=== PATIENT | female | born 2000 | race Caucasian/White ===

== ENCOUNTER 2024-05-16 20:25 | Emergency (ER) | payer OTHER, SELFPAY ==
[2024-05-16 20:33] VITALS: BP 131/90; PULSE 142; TEMP 38; O2SAT 93; BMI 28.3
--- NOTE | 2024-05-16 20:41 | XR_ITS ---
The [address] [address] Patient Name: MICH ORTEGA MRN: [id number] date: 2000 Sex: F Assigned Patient Location: ED.MAIN Current Patient Location: Accession/Order Number: [id number] Exam Date: 05/16/2024 21:05 Report Date: 05/16/2024 23:15 At the request of: NIA BRANCH Procedure: XR hand LT min 3V XR hand LT min 3V: HISTORY: dog bite dog bite COMPARISON: None available. TECHNIQUE: 3 left hand views are submitted. FINDINGS: BONES/JOINT SPACES: There is an acute fracture involving the distal tuft of the fourth distal phalanx. No additional acute fractures are present elsewhere. The joint spaces are well-maintained. SOFT TISSUES: There is significant soft tissue swelling with air in the soft tissues of the left hand along the metacarpal bones and between the metacarpophalangeal joints. No retained radiopaque foreign bodies are present. XR/XR hand LT min 3V IMPRESSION: 1. Acute fracture involving the left fourth distal phalanx. 2. Significant soft tissue swelling and air as discussed above corresponding to reported clinical history of dog bite. Electronically authenticated by: BELLO SOSA Date: 05/16/2024 23:15
[2024-05-16] MEDS: KETOROLAC TROMETHAMINE 30 MG/ML VIAL IVP (21:15)
[2024-05-16] MEDS: ADACEL DIPH,PERTUSS(ACELL),TET VAC/PF 0.5 ML ADULT SYRINGE IM (21:16)
[2024-05-16] MEDS: ONDANSETRON PF 4 MG/2 ML VIAL IV (21:16)
[2024-05-16] MEDS: AMPICILLIN SODIUM/SULBACTAM NA 3 GM in 0.9 % SODIUM CHLORIDE 100 ML IV (21:17)
[2024-05-16] MEDS: LIDOCAINE HCL 2% PF 40 MG/2 ML VIAL 10 ML INJ (21:20)
[2024-05-16] MEDS: LORAZEPAM 2 MG/ML VIAL 0.5 MG IV (21:45)
--- NOTE | 2024-05-16 21:53 | PC.NURSE ---
Long scratch to left ring finger from tooth. Large gapping wound to outer palm of hand with adipose tissue noted
--- NOTE | 2024-05-16 22:09 | ED.ANIMALBI1 ---
HPI - Animal Bite General Chief Complaint: Animal Bite Stated Complaint: dog bite Time Seen by Provider: 05/16/24 20:41 Source: patient Mode of arrival: walk-in Limitations: no limitations History of Present Illness HPI narrative: 23-year-old female presents here with a chief complaint of a dog bite to the left hand. Dogs were fighting over a ball she tried to separate them. She has a complex laceration to the left palm measuring 4 x 2 cm length with. Appears superficial in nature on initial exam patient also has a deep superficial scratch around the medial and lateral aspect of the ring finger with complete avulsion of her fingernail. She is not up-to-date on her tetanus. Patient presented to the emergency room immediately after injury occurred. Both dogs are vaccinated. Related Data Home Medications ?Medication ?Instructions ?Recorded ?Confirmed control 05/16/24 Previous Rx's ?Medication ?Instructions ?Recorded amoxicillin 875 mg-potassium 1 tab PO BID #20 tabs 05/16/24 clavulanate 125 mg tablet fluconazole 100 mg tablet 100 mg PO QWEEK #2 tabs 05/16/24 (Diflucan) Allergies Allergy/AdvReac Type Severity Reaction Status Date / Time azithromycin [From Zithromax] AdvReac Nausea Verified 05/16/24 20:37 Review of Systems ROS Narrative All Systems are negative except as noted/marked.All systems reviewed and otherwise negative Exam Narrative Exam Narrative: Nurses note and vital signs reviewed and patient is not hypoxic. General: The patient appears upset and crying due to incident. Skin: Warm, dry, no pallor noted. There is no rash noted. Head: Normocephalic, atraumatic Eye: Normal conjunctiva, no drainage, EOMI. PERRL Ears, Nose, Mouth, and Throat: oral mucosa is moist. Nares patent. Mouth without vesicles. Ear canals patent. Tm's without Erythema Musculoskeletal: complex laceration to the left palm measuring 4cm in length by 1cm width with subcutaneous fat exposed. bleeding controlled, no foreign bdy, no tendon damage or exposure. pt able to move all fingers well, full flexion and extension, left ring finger has superficial laceration to the medial and lateral aspect of finger running distally with complete nail avulsion. 2 superficial puncture wounds the dorsal aspect of hand. The patient has no evidence of calf tenderness, no pitting edema, symmetrical pulses noted bilaterally Neurological: A&O x4, normal speech Psychiatric: Cooperative Constitutional Vital Signs, click to edit/add: Last Vital Signs Temp 100.4 F 05/16/24 20:33 Pulse 89 05/16/24 22:30 Resp 16 05/16/24 22:30 BP 98/64 05/16/24 22:30 Pulse Ox 99 05/16/24 22:30 O2 Del Method Room Air 05/16/24 22:30 Course Vital Signs Vital signs: Vital Signs Temperature 100.4 F 05/16/24 20:33 Pulse Rate 142 H 05/16/24 20:33 Respiratory Rate 22 H 05/16/24 20:33 Blood Pressure 131/90 05/16/24 20:33 Pulse Oximetry 93 L 05/16/24 20:33 Oxygen Delivery Method Room Air 05/16/24 20:33 Temperature 100.4 F 05/16/24 20:33 Pulse Rate 89 05/16/24 22:30 Respiratory Rate 16 05/16/24 22:30 Blood Pressure 98/64 05/16/24 22:30 Pulse Oximetry 99 05/16/24 22:30 Oxygen Delivery Method Room Air 05/16/24 22:30 MDM - Animal Bite MDM Narrative Medical decision making narrative: 23-year-old female presents here with a chief complaint of a dog bite to the left hand. Dogs were fighting over a ball she tried to separate them. She has a complex laceration to the left palm measuring 4 x 2 cm length with. Appears superficial in nature on initial exam patient also has a deep superficial scratch around the medial and lateral aspect of the ring finger with complete avulsion of her fingernail. She is not up-to-date on her tetanus. Patient presented to the emergency room immediately after injury occurred. Both dogs are vaccinated. upon arrival to er the pt was placed in room and IV was established. pt left hand was soaked and irrigated by myself and nursing staff, pt has significant laceration to the palm of the left hand measuring 4 x 1.5 cm in length and width. Hand was investigated by myself no acute foreign body x-rays were performed showed no acute foreign body. Hand was anesthetized with 2% lidocaine solution x 5 cc as well as 1% lidocaine solution x 3 cc totally. The wound was then loosely approximated using 4-0 Ethilon suture x 14 sutures. Simple sutures were used. Wound was then dressed with nonadhesive dressing. Patient also had superficial lacerations to the medial and lateral aspect of the left ring finger which did not require sutures. That was also dressed by nursing staff. Patient does have an open fracture noted to the distal tip of the left ring finger where she has a tuft fracture and nail avulsion. Patient's hand was dressed and tube gauze dressing was applied. Patient was given IV antibiotics here. She was medicated with Toradol morphine and discharged home with prescription for Percocet and antibiotics. She will follow-up with orthopedics on Saturday at 10:15 in the morning. Reasons to return to the emergency room were discussed. Patient tolerated procedures well. She verbalized understanding discharged home with laceration dog bite and phalanx fracture instructions. Patient encouraged to take all of the antibiotics till they are completely gone. Differential Diagnosis Differential diagnosis: Likely dog bite Medical Records Attestation: I reviewed the patient's medical records. Imaging Data hand: Attestation: I have reviewed the pertinent imaging results. Radiologist's impression: ITS Impressions Hand X-Ray 05/16/24 20:41 IMPRESSION: 1. Acute fracture involving the left fourth distal phalanx. 2. Significant soft tissue swelling and air as discussed above corresponding to reported clinical history of dog bite. Electronically authenticated by: BELLO SOSA Date: 05/16/2024 23:15 Discharge Plan Discharge Stand Alone Forms: Portal Instructions Chief Complaint: Animal Bite Clinical Impression: Dog bite, Laceration, Avulsion of nail bed Patient Disposition: Home, Self-Care Time of Disposition Decision: 10:30 Condition: Good Mode of Transportation: Private Vehicle Prescriptions / Home Meds: New amoxicillin-pot clavulanate 875-125 mg tablet 1 tab PO BID Qty: 20 0RF fluconazole [Diflucan] 100 mg tablet 100 mg PO QWEEK Qty: 2 0RF No Action control Print Language: Greenlandic Instructions: Animal Bite (ED), Care For Your Stitches (DC), Laceration (ED), Nail Avulsion (ED) Referrals: Michael Rdz MD [Physician] - 1 week Physician,Non-Staff, [Physician] - 1 week Roe Ko MD [Physician] - 05/18/24 10:10 am Discharge Date/Time: 05/16/24 22:35
[2024-05-16] MEDS: OXYCODONE HCL/ACETAMINOPHEN 5MG/325MG 1 TAB PO (22:27)
[2024-05-16] MEDS: LIDOCAINE HCL 1% PF 50 MG/5 ML VIAL INJ (22:28)
[2024-05-16] MEDS: MORPHINE SULFATE 2 MG/ML SYRINGE IV (22:28)
[2024-05-16 22:30] VITALS: BP 98/64; PULSE 89; O2SAT 99
== END 2024-05-16 22:35 | disposition home or self-care (01) ==
PROVIDERS: Emergency Provider Internal Medicine; PCP Family Medicine
DX: S61.452A Open bite of left hand, initial encounter (principal); S62.635B Displaced fracture of distal phalanx of left ring finger, initial encounter for open fracture; S60.572A Other superficial bite of hand of left hand, initial encounter; W54.0XXA Bitten by dog, initial encounter; Z23 Encounter for immunization
CPT/HCPCS: 12002; 73130; 90471; 90715; 96365; 96375; 99284; J0295; J1885; J2060; J2270; J2405

== ENCOUNTER 2024-07-15 10:12 | Outpatient (OUT) | payer OTHER, SELFPAY ==
--- OUTSIDE RECORDS SUMMARY | 2024-07-15 10:29 | XMS_ITS | CCD ---
Author Organization [facility] Inform ion Partnership [facility] Care Team Providers Care Computer Forensic Specialist Name Role Phone VERA FOX V Attending Unavailable VERA FOX V Admitting Unavailable VERA FOX V Attending Unavailable VERA FOX V Admitting Unavailable Vic Serrano Primary Care Physician MD Vic Serrano Primary Care Provider [phone] MD Lui Velazquez Jr Emergency Provider Lui Velazquez Jr Admitting Unavailable Lui Velazquez Jr Attending Unavailable Vic Serrano Primary Care Unavailable DO Rajesh Hunt Admitting Unavailable DO Rajesh Hunt Attending Unavailable DO Rajesh Hunt Attending Unavailable Darwin Millan Attending Unavailable Darwin Millan Admitting Unavailable JOHN HALEY Attending Unavailable JOHN HALEY Attending Unavailable Vic Serrano MD Primary Care Provider [phone] VIC SERRANO Primary Care Unavailable TOBI BOOGIE Attending Unavailable Allergies Allergy Classification Reported Allergen(s) Allergy Type Date of Onset Reaction(s) Facility (2 sources) Azithromycin; Translations: [Zithromax] Drug Allergy [facility] Repository (4 sources) Azithromycin; Translations: [azithromycin] Drug Allergy 03-30-2019 [facility] (1 source) Azithromycin Drug Allergy 12-06-2022 [facility] Repository Medications Current Medications Medication Drug Class(es) Dates Sig (Normalized) Sig (Original) Aspir 81 (1 source) Start: 06-26-2015 take 81 mg by mouth once daily Aspir 81 81 mg, Oral, Daily, Refills(s) 0, Other (see comment) Start Date: 06/26/15 Status: Ordered etonogestrel 68 mg drug implant (1 source) Progestin End: 11-13-2023 etonogestrel-elutin g 68 mg contraceptive implant Inject 68 mg under the skin 0 11/13/2023 Discontinued (Therapy completed) FLUoxetine 20 mg oral capsule (1 source) Serotonin Reuptake Inhibitor Start: 11-13-2019 take 1 capsule by mouth once daily FLUoxetine 20 mg Cap 20 mg = 1 cap(s), Oral, Daily, Refills(s) 0, Depression Start Date: 11/13/19 Status: Ordered norethindrone 0.35 mg oral tablet (1 source) Start: 10-21-2023 End: 10-20-2024 take 1 tablet by mouth in the morning norethindrone (Incassia) 0.35 MG tablet Indications: Encounter for surveillance of contraceptive pills Take 1 tablet (0.35 mg) by mouth in the morning. 84 tablet 3 10/21/2023 10/20/2024 Active topiramate 50 mg oral tablet (1 source) Start: 11-13-2019 take 1 tablet by mouth once daily topiramate 50 mg Tab 50 mg = 1 tab(s), Oral, Daily, Refills(s) 0, Migraine headache Start Date: 11/13/19 Status: Ordered Problems Problem Classification Problem Date Documented Date Episodic/Chronic Anxiety disorders (1 source) Anxiety 11-13-2019 Chronic Cardiac and circulatory congenital anomalies (1 source) Patent foramen ovale 11-13-2019 Chronic Contraceptive and procreative management (1 source) Subcutaneous contraceptive implant present; Translations: [Encounter for surveillance of implantable subdermal contraceptive] 11-12-2023 Episodic Headache; including migraine (2 sources) Migraine; Translations: [Complicated migraine] 11-20-2019 Chronic Headache; including migraine (1 source) Headache; including migraine; Translations: [Headache, unspecified] Onset: 12-06-2022 Nausea and vomiting (3 sources) Nausea with vomiting, unspecified; Translations: [Nausea] Onset: 07-06-2024 Episodic Other and unspecified benign neoplasm (1 source) 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 Other hematologic conditions (1 source) H/O: blood disorder 11-13-2019 Episodic Unclassified (1 source) vomiting, nausea Onset: 07-06-2024 Results Test Name Value Interpretation Reference Range Facility BASIC METABOLIC PANLon 07-06 Anion gap [Moles/Vol] 7 mmol/L Normal 5-15 [facility] Comment on above: Performed By: #### B MANSOOR OCAMPO, 05834-2 #### [facility] ([id number]) [address] [place] [address] 51235 Calcium [Mass/Vol] 9.0 mg/dL Normal 8.5-10.5 [facility] Comment on above: Performed By: #### B MANSOOR OCAMPO, 13205-4 #### [facility] ([id number]) [address] [place] [address] 30764 Chloride [Moles/Vol] 106 mmol/L Normal 98-109 [facility] Comment on above: Performed By: #### [place], [address]-7 #### [facility] ([id number]) [address] [place] [address] 69274 CO2 [Moles/Vol] 26 mmol/L Normal 22-32 [facility] Comment on above: Performed By: #### B MANSOOR OCAMPO, 81143-7 #### [facility] ([id number]) [address] [place] [address] 34938 Creatinine [Mass/Vol] 0.63 mg/dL Normal 0.40-1.00 [facility] Comment on above: Result Comment: METH OD TRACEABLE TO IDMS STANDARD Performed By: #### B MANSOOR OCAMPO, 21649-3 #### [facility] ([id number]) [address] [place] [address] 73453 eGFR (CKD-EPI) NON-RACE DEPENDENT >90 Normal >59 [facility] Comment on above: Result Comment: Reported eGFR is based on the CKD-EPI 2020 equation that does not use a race coefficient. Performed By: #### B MANSOOR OCAMPO, 43819-3 #### [facility] ([id number]) [address] [place] [address] 21901 Glucose [Mass/Vol] 111 mg/dL High 65-99 [facility] Comment on above: Performed By: #### B TERRENCE, CBCA, 71381-9 #### [facility] ([id number]) [address] [place] [address] 58561 Potassium [Moles/Vol] 4.2 mmol/L Normal 3.5-5.0 [facility] Comment on above: Performed By: #### B MP, CBCA, 23541-3 #### [facility] ([id number]) [address] [place] [address] 18118 Sodium [Moles/Vol] 139 mmol/L Normal 134-146 [facility] Comment on above: Performed By: #### B TERRENCE, CBCA, 85452-5 #### [facility] ([id number]) [address] [place] [address] 89750 Urea nitrogen [Mass/Vol] 10 mg/dL Normal 5-23 [facility] Comment on above: Performed By: #### B TERRENCE, CBCA, 87428-8 #### [facility] ([id number]) [address] [place] [address] 07977 CBC AND AUTO DIFFon 07-06-20 24 ABSOLUTE BASOPHIL 0.1 X10E9/L Normal 0.0-0.2 [facility] Comment on above: Performed By: #### B MP, CBCA, 65962-2 #### [facility] ([id number]) [address] [place] [address] 03612 ABSOLUTE NEUTROPHIL 6.2 X10E9/L Normal 1.5-6.6 [facility] Comment on above: Performed By: #### B MP, CBCA, 27578-0 #### [facility] ([id number]) [address] [place] [address] 86132 Basophils/100 WBC (Bld) 0.8 % Normal [facility] Comment on above: Performed By: #### B TERRENCE, CBCA, 00568-7 #### [facility] ([id number]) [address] [place] [address] 79678 Eosinophils (Bld) [#/Vol] 0.1 10*3/uL Normal 0.0-0.4 [facility] Comment on above: Performed By: #### B TERRENCE, CBCA, 83288-4 #### [facility] ([id number]) [address] [place] [address] 90317 Eosinophils/100 WBC (Bld) 0.7 % Normal [facility] Comment on above: Performed By: #### B TERRENCE, CBCA, 33552-8 #### [facility] ([id number]) [address] [place] [address] 38673 Erythrocyte distribution width (RBC) [Ratio] 16.5 % High 11.5-15.0 [facility] Comment on above: Performed By: #### B TERRENCE, CBCA, 75987-1 #### [facility] ([id number]) [address] [place] [address] 18148 Hematocrit (Bld) [Volume fraction] 42.7 % Normal 35-47 [facility] Comment on above: Performed By: #### B TERRENCE, CBCA, 70207-7 #### [facility] ([id number]) [address] [place] [address] 34390 Hemoglobin (Bld) [Mass/Vol] 14.3 g/dL Normal 11.7-15.5 [facility] Comment on above: Performed By: #### B TERRENCE, CBCA, 91106-4 #### [facility] ([id number]) [address] [place] [address] 09250 Lymphocytes (Bld) [#/Vol] 0.9 10*3/uL Low 1.0-3.5 [facility] Comment on above: Performed By: #### B TERRENCE, CBCA, 81096-5 #### [facility] ([id number]) [address] [place] [address] 20243 Lymphocytes/100 WBC (Bld) 12.0 % Normal [facility] Comment on above: Performed By: #### B TERRENCE, CBCA, 06789-3 #### [facility] ([id number]) [address] [place] [address] 43369 MCH (RBC) [Entitic mass] 29.3 pg Normal 27-34 [facility] Comment on above: Performed By: #### B TERRENCE, CBCA, 42200-4 #### [facility] ([id number]) [address] [place] [address] 14137 MCHC (RBC) [Mass/Vol] 33.5 g/dL Normal 32-36 [facility] Comment on above: Performed By: #### B TERRENCE, CBCA, 98405-5 #### [facility] ([id number]) [address] [place] [address] 70312 MCV (RBC) [Entitic vol] 88 fL Normal 80-100 [facility] Comment on above: Performed By: #### Allegra OCAMPO, CBCA, 59371-5 #### [facility] ([id number]) [address] [place] [address] 44857 Monocytes (Bld) [#/Vol] 0.4 10*3/uL Normal 0-0.9 [facility] Comment on above: Performed By: #### B TERRENCE, CBCA, 39292-2 #### [facility] ([id number]) [address] [place] [address] 92800 Monocytes/100 WBC (Bld) 5.9 % Normal [facility] Comment on above: Performed By: #### Allegra OCAMPO, CBCA, 62439-5 #### [facility] ([id number]) [address] [place] [address] 80253 Neutrophils/100 WBC (Bld) 80.6 % Normal [facility] Comment on above: Performed By: #### B MP, CBCA, 14474-0 #### [facility] ([id number]) [address] [place] [address] 03990 Platelet mean volume (Bld) [Entitic vol] 9.3 fL Normal 7-12 [facility] Comment on above: Performed By: #### B MP, CBCA, 73281-7 #### [facility] ([id number]) [address] [place] [address] 79240 Platelets (Bld) [#/Vol] 221 10*3/uL Normal 150-450 [facility] Comment on above: Performed By: #### B MP, CBCA, 99848-3 #### [facility] ([id number]) [address] [place] [address] 49228 RBC COUNT 4.89 X10E12/L Normal 3.80-5.20 [facility] Comment on above: Performed By: #### B MP, CBCA, 39715-3 #### [facility] ([id number]) [address] [place] [address] 05967 WBC (Bld) [#/Vol] 7.7 10*3/uL Normal 4.0-11.0 [facility] Comment on above: Performed By: #### B MP, CBCA, 10733-7 #### [facility] ([id number]) [address] [place] [address] 23857 HCG ( test) Kieran Sun (S)on 07-06-2024 SERUM Negative Normal NEG [facility] Comment on above: Performed By: #### B MP, CBCA, 22802-5 #### [facility] ([id number]) [address] [place] [address] [place] [address] URN MACROSCOPIC NURon 2023 BILIRUBIN NAN Negative Normal NEG [facility] Comment on above: Performed By: #### N UM #### [facility] ([id number]) [address] [place] [address] [place] [address] BLOOD/HGB ANN Negative Normal NEG [facility] Comment on above: Performed By: #### N UM #### [facility] ([id number]) [address] [place] [address] [place] [address] GLUCOSE ANN Negative Normal NEG [facility] Comment on above: Performed By: #### N UM #### [facility] ([id number]) [address] [place] [address] [place] [address] KETONES ANN Negative Normal NEG [facility] Comment on above: Performed By: #### N UM #### [facility] ([id number]) [address] [place] [address] [place] [address] LEUKOCYTE ESTERASE ANN Negative Normal NEG [facility] Comment on above: Performed By: #### N UM #### [facility] ([id number]) [address] [place] [address] [place] [address] NITRITE ANN Negative Normal NEG [facility] Comment on above: Performed By: #### N UM #### [facility] ([id number]) [address] [place] [address] [place] [address] PH ANN 6.0 Normal 5.0-8.5 [facility] Comment on above: Performed By: #### N UM #### [facility] ([id number]) [address] [place] [address] [place] [address] PROTEIN ANN Negative Normal NEG [facility] Comment on above: Performed By: #### N UM #### [facility] ([id number]) [address] [place] [address] SPECIFIC GRAVITY ANN 1.025 Normal 1.003-1 .03 5 [facility] Comment on above: Performed By: #### N UM #### [facility] ([id number]) [address] [place] [address] UROBILINOGEN ANN 0.2 eu/dL Normal <1.1 [facility] Comment on above: Performed By: #### N UM #### [facility] ([id number]) [address] [place] [address] 27644 Insertion/Removal of Contrac eptive Capsuleon 11-13-2023 John Haley DO 11/13/2023 11:51 AM Insertion/Removal of Contraceptive Capsule Date/Time: 11/13/2023 11:47 AM Performed by: John Haley DO Authorized by: John Haley DO Consent: Consent obtained: Verbal Consent given by: Patient Procedural risks discussed: Bleeding and infection Patient questions answered: yes Patient agrees, verbalizes understanding, and wants to proceed: yes Indication: Indication: Presence of non-biodegradable drug delivery implant Pre-procedure: Pre-procedure timeout performed: yes Prepped with: povidone-iodine Local anesthetic: Lidocaine with epinephrine The site was cleaned and prepped in a sterile fashion: yes Procedure: Procedure: Removal Small stab incision was made in arm: yes Left/right: Left Site was closed with steri-strips and pressure bandage applied: yes Comments: Implant removed intact [facility] Coding Summary.on 01-21-2023 Coding Summary. CD:[id number] Ww+PGh lYWQ+SW2SNLPmR08vjQVruV9dK 0NMTElOSywgQVBQTElOSyIgbmF iVE2jsXBfEOUi IC8+RI8sZAAlAmgumYNzd5R0vQ T9Q35bez8jEGdfcAL3FXSjLdBd cpwhw3cqlCt4KWevDxuzMsSs XIMdaT81RWN2xE19Dh70ySFnuS Phy4wvbYe8WsMqNYKjZXV5pSmw TMeat6RiOMSuD54icCSxd3O5 WAAqmKxmbNDdTlOgyOL1gE4bVT oiwavpv5zkezrkQll7nn82pFBs w5A8mWW1G0SxvfB0ZUOtnUOf CosehKEIgR9ugfjar6mojdfpPa SwMXDeQNt2NMu1RSNsoAtvFpMs DZ17JYE3ABPesxHxF4RfYNGl rYweAbJ6x3D2Zi4VM3KUWljgR0 VNTUFSWTwvdGQ+YY08zs45J3Wz ZvrmCmi1GBQtNTR2yJY2oY1z VVPlUJkce4A6xTT6P5DxidAflu 6lb5kaIFDlZNhhZ80xoRNvw3A1 INMhbUT9LXVvyIncZpHcvM59 Oyc+ECWwgVdkm6IvPgiiz7mhh2 pjgYw1ZhkpKOQilwGhpThwBMH6 d9SnQr1vKEZhtWW1kBG0aX0s QiExAnB5CCaoD145PvWqyNCiNo umU89gB7LjxLV+GRSePfl8NQTz gVjlEJ4mQ5SkMXBlssredPNv nOsoJT4dWYTkwtmiJQFbeZ3uUU XyN4a4OeIuXtZ9YOhhQ8ZsGSTj dqyrLl02aH8pNjQhLrI0PCuk Q2ClniY7OUXnvWLjURmuUOU4M5 3wj6L6UCNiOTLbXSE0eNG8mA4c bGlnbjogbGVmdDsgdmVydGlj BTayEVvaQ999GXQiwZjrAfCgTX luZyBEYXRlOiAgMDQvMTcvMjAy MzwvdGQ+FNUhBWY9kAcoYLRv pVYwZFjoQa9ooRtnsGgcPA0oSJ ZznhjoAGGunS7sJHHqsZOvdWec OI4rHREnjthdh108LvRmMUT1 WNVfvQPxJ0AciQ0oGyQfVUHnNW VzC5YsnUZtTYjrN496OQpuNkY9 YLQkajRyO4ApEDOlvLnnEoT3 v1N7Cw6Ik0NlyyqfF9PeuKWhEy CkXsoiPDa2S2JcKxttjMT+PC90 IGTyJC84QMf4YJZ0oKztCQmp AAWzK5ZjpC5gAlRhLXGoNAExOf c+PHRhYmxlIHdpZHRoPScxMDAl QfVdeSknQT1iMe9lZKRvFXZa xRbhnSWzKjDlu8blXCGpPNugWR 2tkPtcC6TdeMY9UKEiz7c7Pj01 F15tC4UpnYG+OIDhqVK3nJV4 cD0tDwBkUuM4EZepR982NzTqvU HcMzplx8zgl9eisNt1JgH5OZCb stNcoLmiCUC6w9IhZu39T70o IHdpZHRoPSIxNSUiIHZhbGlnbj 8juR6qYz3+RTUynTD2sFB0jH1v VaNrAsR0XUmkU593OtVnsHUn Qocrl4mjr1lgbNm4CvKsMYLopl DrhRywBBN8c6RhCg22V6NgsLib u4DqWgy3xf77qNNnu2K9cAM1 W4KkJVFjcdktuMTjxDysFW5yUB QrovovVCGbbO7sCSDbW3m0AsDp FyZ5LDxvB5JymcK9QZRadFVd XXZvuCPJpU8rjcxwi8leasdeNz NtNJEaCBh3MGr5PJAcxCwyFxTt ILB3OuN2XHB7iYPnyA8ftJru otpzlH0fYab+RLS1rQLqqLCGVD 1lOjwvdGQ+UXHuATH7cNfzVBtz NSTahU0qGCYxU3n3ReOkIjW3 APzpG4WdmnP5WBCdjVCzUXRzyE TRzE3ldutje1zrmzsvXpMwNBGr OVl1RXq2XWDxiCavEdLfDLR1 CmL7JHW8lWUrfK5giDofwnozuX 9wOyc+JcfrdUygRPB2WTv8D1Ey Wrv1PUEzeAxqPG4qwYGyROut Kw1boMiviTzqZR0fBNIiwltvg7 86OlUvq6jtFSQfdDXnZGpbKKC6 F13dp4W6GCNlYOWvHRX9wYV1 nL8lgCmrhxofxAQkzRfodaUpmD hoYMybKLpgD185KBIeaGfnWlQt NMg4A3KoQdo2GWGidNzrRS1j bHObMNbwKn2gzIasrTliBW3bXW Rizhoez560JrWmt9baPYMjmHXj OTepMCI2T73pb3A3JHVrEIMq LDQ1mQQ2zX3ngIgiftmykCAgrC gcggIewPswMBlhJMnrA870CEXb dEauQaCytAv9N0NuUwx9IFTc aNmxYF5wuHZaCZluFk8wxTqakX gbSV4cUCBvfercp734ZqWbj9wk MTTzmSJrSRbkDPX1Y98be8B0 VCDnRSNvJIL8wQC8eG1imExwqx ogbGVmdDsgdmVydGljYWwtYWxp E796NPSvqGqfUgYueSpyumPg HYgeKNc8X2VnVgkpaVW+PC90YW JkWK39sJIpaEVwc8tstPv1BvFu VZYwALL3jEeiVIpov7CuEJSc T90xnKEnj1M9JRCcxHlnrWSzGe CbrEH9yQ5jPInrrbwmu8ydxudd Lcnao3hpre02hL08J51hMWxo HSPjOJWsBHTaXZNliEteuz8zhI 9wIi8+NVOugTD1iYL6xL6kPRSu LvD7UHfbF656XpPjwQRnIqwt n1xvg4wkwPa7SiF2CMJycjOjaZ oiKSZ5x6VvAc59D72nQLqbJKUb HCGjRTYwFBCsjUyxrc0guW5c Ii8+EPCkiDE9rEM3xF3pSxVwZc J4SCynA814QxZyhEWhOusdJ81s U8LerJK+VHBaQbt1BNRziYew RK6mfFKrXOheLc5aPUT7QrCyJv WrYMgqP0DoDYNdwqiachnshRU3 SKTcWJHubB45Cq7ejVofXYJw bJMBoS1hbmxvd2nssaphJiGqHW YwYFo0VWq0DDZvdPidFpVnHKE8 OyP9ZJV6hGFbgB1ebIpqzplx zM3dS0XeMSUgffawXc43tG8wNt ZkImE9QIomUny+QxHEN76FLgik GQNDZ0kGLLG3G1MsBfb2XQCs tEdsNQ2ktRDmREeyXk2qpNlkwZ mlDK9sRAGckdqfGJRgwM4wCGWr oIKxwDouXK9aLXSzscgsn251 CsOgUJG4ONCzpAHuT1CgvM1dPz QoVUQhCTXpI8QnhJOuSUilP101 GFioQvX0MAFqgkCsK8SsKRGs eAxpWvE1m6J7Ew9sGX3dNC0gQU d4GZ81TY98iPZjt5N7qST5S3Dv XYJpdmzxtjuloLM1SCPsDFYd wF14aKGiUUtiNd9xt4E6t743VX XgBPOssV70Lw0ylDsjALIycRAF hM6zkuiyf8iqhukkHbFoRDYb FUf5MBs6ETRmtKndRbGvDEW1Zo L4VSH2pTBslO5vsXzqnocfhF8g Oyc+TwAiARBhhxC2Y5RzRre7 YQTllZksOL1ftHByMJxmVf5kpZ rbxWflNL4lJCJmqlluGBVnoO5h JCRifGOcqOhjSU9vUKMgkhpe u917CpZgIQG6KEBemBAfD6MkyF 3tJpEgZUPqTIQcX7XlnNZnVYuq T237PObbSwF4TAVgerTxK7To SJQsfMqhCkO0y4L7Nx4ECG3odZ P9S0IhJuh2UUXocYabWM4oiESy DFzoMp0fcNzotGicXH4lUIBw odavJFIfrJ0aOWBjsKHmsRodSL 9iJQUhtvtwh160FuRhDVI5KRFm nOVjK6NpnO2sGxAuSVKmNUXh I9VgdLVgQUfsA967QFxcHmH5NO EmjqKjZ6VnPXSoaPwfRiJ1r1L8 Cj7NJMBbVFVcxGEdQnL0J2Ng PjwvdHI+BL00XNLpSG69aGFikD Xlp0nbeDh2UoVkLHMhXCJ1xFah HAjwz7QvMTXcH89frDDmm4O5 PMHomTdqlREzZoLoxJI0bO2vGU xlesyku8myyycqCwgww2bopz63 kQ89Y43jGEveCDIhTFXmITJh HENtqHmvvv8bwA5gTa7+PGNvbC L5cNN2hH9fGjPkVaC7MQrgN088 XcGwaWKwFwkao4pjr5ryoAw4 XeWqRSKissDnqJvvRPQ8b0FoEk 17X76vUOpeYGGlFVQeHVDrVZBq tIzyxh2lzL3oVu0+PM7zt8oe em73sW66cVC+FKTpYVT4hTmnHH ocUPUgnE2gBIpkMmB6NSNrWmMj dH15lZJjWAwmZv9vfWraaPim RK5jECIculfuy449ZfTwe3ygUD XlsIEbONlsBTX8L19et9J0HZAk NISnDZR2xSA9tZ4ogZcxhbxl bGVmdDsgdmVydGljYWwtYWxpZ2 41DOLsiXhwZnXgxREhV4awtuHV GS3lMkeyyRV+UMNqNDF3uAfj YPssBUXahA0pMTKuJ0i7ZkEkOb J8MFwyN1MmbbP5BHIvkKRgXGUh rRAPrC4aihryu5ouaiubObNi ZHNiQWi9YFv6MDJhnHieMeSgCM I5LiS4EUL2mBOygJ7rqZxhlfcn yM9xDks+RklOOjwvdGQ+PHRk QWP8lRmfAIdlRWNgfT2bOBFcJ4 d3OdAgHsV4FSbjD7NtsfL0RRRe oWTvLMDgjWRZfO8blnixq1wl qzhwJzMqVAGdMIy5ECs7OYYbjW izLfHlULA5ZfC3GPA5nTJfqX7g kNwtokkenU5iDxl+TVJOOjwv dGQ+NEQtWYK7aTgvJGfoWDWteX 1wEGOsC2a9LvZvNeD0GRykZ5Kc bfS7IEGkaUBpFXDekEVJmN7b pnxni6dxjhnxWbAgHWTwVSu4BN w0WCHlwWbjDmBvUSO8LvZ1BXD7 sOFsiI2hzJoctcxpwJ2yErm+ SFS9GRX7UY40MT34U0SyHutiiN FibGU+PHRhYmxlIHdpZHRoPScx WSEdXeQrcDuvOX6uKd7sYFLc LWNvbGxh (more content not included)... [facility] Physician Orderon 01-14-2023 Physician Order [id number] Normal [facility] Activated partial thrombopla stin time (aPTT) in platelet poor plasma by coagulation aOrdered By: Lui Velazquez on 12-06-2022 aPTT Coag (PPP) [Time] 32.6 s 25.1-36.5 [facility] Albumin [Mass/volume] in Bod y fluidOrdered By: Lui Velazquez on 12-06-2022 Albumin (Body fld) [Mass/Vol] 3.9 g/dL 3.2-5.5 [facility] Alkaline phosphatase [Enzyma tic activity/volume] in Serum or PlasmaOrdered By: Lui Velazquez on 12-06-2022 ALP [Catalytic activity/Vol] 37 U/L 32-92 [facility] Aspartate aminotransferase [ Enzymatic activity/volume] in Serum or PlasmaOrdered By: Lui Velazquez on 12-06-2022 AST [Catalytic activity/Vol] 16 U/L 10-42 [facility] Basophils Auto (Bld) [#/Vol] Ordered By: Lui Velazquez on 12-06-2022 Basophils (Bld) [#/Vol] 0.1 10*3/uL 0.0-0.2 [facility] Basophils/100 WBC Auto (Bld) Ordered By: Lui Velazquez on 12-06-2022 Basophils/100 WBC (Bld) 0.9 % . [facility] Bilirubin.total [Mass/volume ] in Serum or PlasmaOrdered By: Lui Velazquez on 12-06-2022 Bilirubin [Mass/Vol] 0.4 mg/dL 0.3-1.[address] [facility] [address] head/brain wo conon 12-06 CT head/[place] [address] CT Scan Report Signed Patient: Zaida Bolton MR#: [id number] : 2000 Acct:[id number] Age/Sex: 22 / F ADM Date: 12/06/22 Loc: ER Room: Type: [facility] ER Attending Dr: Copies to: Lui Velazquez Jr, MD Ordering Provider: Lui Velazquez Jr, MD Date of Service: 12/06/22 CT/CT head/brain wo con: STUART, R hand numb, hx complic migraine and PFO CT BRAIN WITHOUT CONTRAST: CLINICAL HISTORY: Headache, right hand numbness COMPARISON: None TECHNIQUE: Contiguous axial unenhanced images were obtained through the brain. This CT exam was performed using one or more following dose reduction techniques: Automated exposure control, adjus tment of the mA and/or kV according to patient size, or use of iterative reconstruction technique. FINDINGS: There is no evidence of midline shift, intra or extra-axial fluid collection, hemorrhage or CT evidence of stroke. Posterior fossa appears unremarkable. Visualized intraorbital contents demonstrate no acute findings. Visualized paranasal sinuses are clear. The surrounding soft tissues are normal. CT/CT head/brain wo con IMPRESSION: NO ACUTE INTRACRANIAL ABNORMALITY. Impression dictated by: Carlton Coughlin Jr., D.O.12/06/2022 9:24 AM Dictation Location: [place] [address] Transcribed By: [facility] 12/06/22923 Dictated By: Carlton Coughlin Jr, DO 12/06/22922 Signed By: 12/06/22923 Normal [facility] Calcium [Mass/volume] in Ser um or PlasmaOrdered By: Lui Velazquez on 12-06-2022 Calcium [Mass/Vol] 8.8 mg/dL 8.2-10.2 [facility] Carbon dioxide, total [Moles /volume] in Serum or PlasmaOrdered By: Lui Velazquez on 12-06-2022 CO2 [Moles/Vol] 24.9 mmol/L 22.0-30.0 [facility] Chloride [Moles/volume] in S jesika or PlasmaOrdered By: Lui Velazquez on 12-06-2022 Chloride [Moles/Vol] 107 mmol/L 95-114 [facility] Coagulation Profileon 2022 aPTT Coag (Bld) [Time] 32.6 s Normal 25.1-36.5 [facility] Comment on above: Result Comment: PERF ORMED BY: [address] [address] PATHOLOGIST [employer] YAMILETH MICHAELS M.D. Performed By: #### C BC, PP, CMP #### [facility] [address] INR Coag (PPP) [Relative time] 1.1 {INR} Normal [facility] Comment on above: Result Comment: INR Therapeutic Range A) Pre- and Peroperative OAT started two weeks before surgery. NOT HIP SURGERY: 1.5 - 2.5 HIP SURGERY: 2 - 3 B) Primary and secondary prevention of venous THROMBOSIS: 2 - 3 C) Active venous thrombosis, pulmonary embolism and prevention of recurrent venous thrombosis: 2 - 3 D) Prevention of arterial thromboembolism including patients with mechanical heart valves: 3 - 4.5 Performed By: #### C BC, PP, CMP #### [address] PT Coag (PPP) [Time] 12.3 s Normal 9.0-12.9 [facility] Comment on above: Performed By: #### C BC, PP, CMP #### [address] Complete Blood Count Auto Di ffon 12-06-2022 Basophils (Bld) [#/Vol] 0.1 10*3/uL Normal 0.0-0.2 [facility] Comment on above: Result Comment: PERF ORMED BY: [place] [address] PATHOLOGIST [employer] YAMILETH MICHAELS M.D. Performed By: #### C BC, PP, CMP #### [place] [address] [place] Basophils/100 WBC (Bld) 0.9 % Normal . [facility] Comment on above: Performed By: #### C BC, PP, CMP #### [place] [address] [place] Eosinophils (Bld) [#/Vol] 0.1 10*3/uL Normal 0.0-0.45 [facility] Comment on above: Performed By: #### C BC, PP, CMP #### [address] Eosinophils/100 WBC (Bld) 2.1 % Normal . [facility] Comment on above: Performed By: #### C BC, PP, CMP #### [facility] [address] Erythrocyte distribution width (RBC) [Ratio] 12.9 % Normal 11.9-15.3 [facility] Comment on above: Performed By: #### C BC, PP, CMP #### [facility] [address] Hematocrit (Bld) [Volume fraction] 40.4 % Normal 34.0-46.4 [facility] Comment on above: Performed By: #### C BC, PP, CMP #### [facility] [address] Hemoglobin (Bld) [Mass/Vol] 13.6 g/dL Normal 11.8-15.4 [facility] Comment on above: Performed By: #### C BC, PP, CMP #### [address] Lymphocytes (Bld) [#/Vol] 1.6 10*3/uL Normal 1.00-4.8 [facility] Comment on above: Performed By: #### C BC, PP, CMP #### [place] [address] [place] Lymphocytes/100 WBC (Bld) 29.3 % Normal . [facility] Comment on above: Performed By: #### C BC, PP, CMP #### [facility] [address] [place] [address] [place] MCH (RBC) [Entitic mass] 30.8 pg Normal 24.7-34.3 [facility] Comment on above: Performed By: #### C BC, PP, CMP #### [place] [address] [place] MCV (RBC) [Entitic vol] 91.4 fL Normal 80-100 [facility] Comment on above: Performed By: #### C BC, PP, CMP #### [address] Mean Corpuscular HGB Conc 33.7 g/dL Normal 32.0-35.0 [facility] Comment on above: Performed By: #### C BC, PP, CMP #### [facility] [address] [place] [address] [place] Monocytes (Bld) [#/Vol] 0.6 10*3/uL Normal 0.0-0.8 [facility] Comment on above: Performed By: #### C BC, PP, CMP #### [facility] [address] [place] [address] [place] Monocytes/100 WBC (Bld) 15.24 % Normal 0.00-20.00 [facility] Comment on above: Performed By: #### C BC, PP, CMP #### [facility] [address] [place] [address] [place] Monocytes/100 WBC (Bld) 11.5 % Normal . [facility] Comment on above: Performed By: #### C BC, PP, CMP #### [facility] [address] [place] [address] [place] Neutrophils (Bld) [#/Vol] 3.1 10*3/uL Normal 1.8-7.7 [facility] Comment on above: Performed By: #### C BC, PP, CMP #### [facility] [address] [place] [address] [place] Neutrophils/100 WBC (Bld) 56.2 % Normal . [facility] Comment on above: Performed By: #### C BC, PP, CMP #### [facility] [address] [place] [address] [place] NRBC% 0.2 /100{WBC} Normal 0-0.5 [facility] Comment on above: Performed By: #### C BC, PP, CMP #### [facility] [address] [place] [address] [place] Platelet mean volume (Bld) [Entitic vol] 8.9 fL Normal 6.3-10.7 [facility] Comment on above: Performed By: #### C BC, PP, CMP #### [facility] [address] [place] [address] [place] Platelets (Bld) [#/Vol] 163 10*3/uL Normal 150-450 [facility] Comment on above: Performed By: #### C CORINA, PP, CMP #### [address] RBC (Bld) [#/Vol] 4.42 10*6/uL Normal 3.60-5.00 [facility] Comment on above: Performed By: #### C BC, PP, CMP #### [address] WBC (Bld) [#/Vol] 5.5 10*3/uL Normal 3.8-11.6 [facility] Comment on above: Performed By: #### C CORINA, PP, CMP #### [address] Comprehensive Metabolic Pane bebo 12-06-2022 Albumin [Mass/Vol] 3.9 g/dL Normal 3.2-5.5 [facility] Comment on above: Performed By: #### C BC, PP, CMP #### [address] Albumin/Globulin [Mass ratio] 1.6 {ratio} Normal [facility] Comment on above: Performed By: #### C CORINA, PP, CMP #### [address] ALP [Catalytic activity/Vol] 37 U/L Normal 32-92 [facility] Comment on above: Performed By: #### C CORINA, PP, CMP #### [address] ALT [Catalytic activity/Vol] 14 U/L Normal 10-60 [facility] Comment on above: Performed By: #### C CORINA, PP, CMP #### [address] Anion gap [Moles/Vol] 8.4 mmol/L Normal 6.0-15.0 [facility] Comment on above: Performed By: #### C BC, PP, CMP #### [address] AST [Catalytic activity/Vol] 16 U/L Normal 10-42 [facility] Comment on above: Performed By: #### C CORINA, PP, CMP #### [facility] [address] Bilirubin [Mass/Vol] 0.4 mg/dL Normal 0.3-1.2 [facility] Comment on above: Performed By: #### C BC, PP, CMP #### [facility] [address] Calcium [Mass/Vol] 8.8 mg/dL Normal 8.2-10.2 [facility] Comment on above: Performed By: #### C CORINA, PP, CMP #### [facility] [address] Chloride [Moles/Vol] 107 mmol/L Normal 95-114 [facility] Comment on above: Performed By: #### C CORINA, PP, CMP #### [facility] [address] CO2 [Moles/Vol] 24.9 mmol/L Normal 22.0-30.0 [facility] Comment on above: Performed By: #### C CORINA, PP, CMP #### [facility] [address] Creatinine [Mass/Vol] 0.67 mg/dL Normal 0.44-1.03 [facility] Comment on above: Performed By: #### C CORINA, PP, CMP #### [facility] [address] Creatinine Clr Calc Pharmacy 127.08 [facility] Comment on above: Result Comment: PERF ORMED BY: [place] [address] PATHOLOGIST [employer] YAMILETH MICHAELS M.D. Performed By: #### C BC, PP, CMP #### [address] Estimated GFR ( Janis > 60 Normal [facility] Comment on above: Result Comment: GFR estimated reference range: According to KDOQI guidelines, <60 ml/min/1.73m2 is sufficient to diagnose a patient with chronic kidney disease. Performed By: #### C BC, PP, CMP #### [address] Estimated GFR (Non- Am > 60 Normal [facility] Comment on above: Performed By: #### C BC, PP, CMP #### [address] Globulin (S) [Mass/Vol] 2.5 g/dL [facility] Comment on above: Performed By: #### C BC, PP, CMP #### [address] Glucose [Mass/Vol] 97 mg/dL Normal 70-100 [facility] Comment on above: Result Comment: [place] Glucose Reference Range is dependent on time and content of last meal. Glucose of more than 200 mg/dL in a nonstressed, ambulatory subject supports the diagnosis of Diabetes Mellitus. ADA recommended reference range Performed By: #### C BC, PP, CMP #### [address] Potassium [Moles/Vol] 4.3 mmol/L Normal 3.5-5.1 [facility] Comment on above: Performed By: #### C BC, PP, CMP #### [address] Protein [Mass/Vol] 6.4 g/dL Normal 6.1-7.9 [facility] Comment on above: Performed By: #### C BC, PP, CMP #### [address] Sodium [Moles/Vol] 136 mmol/L Normal 136-146 [facility] Comment on above: Performed By: #### C BC, PP, CMP #### [address] Urea nitrogen [Mass/Vol] 16 mg/dL Normal 9-23 [facility] Comment on above: Performed By: #### C BC, PP, CMP #### [facility] [address] Creatinine and Glomerular fi ltration rate.predicted panel (S/P/Bld)Ordered By: Lui Velazquez on 12-06-2022 Creatinine [Mass/Vol] 0.67 mg/dL 0.44-1.03 [facility] ECG 12 lead ECGon 12-06-2022 ECG 12 lead ECG [facility] [place] [address] [place] [address] Electrocardiograph Report Signed Patient: Zaida Bolton MR#: [id number] : 2000 Acct:[id number] Age/Sex: 22 / F ADM Date: 12/06/22 Loc: ER Room: Type: [facility] ER Attending Dr: Ordering Provider: Lui Velazquez Jr, MD Date of Service: 12/06/2211/29/434 ECG/ECG 12 lead ECG: Neuro Symptoms/Deficit Copies to: Test Reason : Blood Pressure : 115/070 mmHG Vent. Rate : 068 BPM Atrial Rate : 068 BPM P-R Int : 156 ms QRS Dur : 082 ms QT Int : 400 ms P-R-T Axes : 082 093 024 degrees QTc Int : 425 ms Normal sinus rhythm with sinus arrhythmia Rightward axis Abnormal ECG When compared with ECG of 14-NOV-2016 09:06, No significant change was found Confirmed by LUI VELAZQUEZ MD ([id number]) on 12/06/2022 5:23:23 AM Referred By: Electronically Signed By:LUI VELAZQUEZ MD Transcribed By: MUS Signed By Lui Velazquez Jr, MD 0523 Normal [facility] Eosinophils Auto (Bld) [#/Vo l]Ordered By: Lui Velazquez on 12-06-2022 Eosinophils (Bld) [#/Vol] 0.1 10*3/uL 0.0-0.45 [facility] Eosinophils/100 WBC Auto (Bl d)Ordered By: Lui Velazquez on 12-06-2022 Eosinophils/100 WBC (Bld) 2.1 % . [facility] Erythrocyte distribution wid th Auto (RBC) [Ratio]Ordered By: Lui Velazquez on 12-06-2022 Erythrocyte distribution width (RBC) [Ratio] 12.9 % 11.9-15.3 [facility] Estimated glomerular filtrat ion rate (GFR) non- AmericanOrdered By: Lui Velazquez on 12-06-2022 GFR/1.73 sq M.predicted among non-blacks MDRD (S/P/Bld) [Vol rate/Area] > 60 mL/Min [facility] Globulin Calc (S) [Mass/Vol] Ordered By: Lui Velazquez on 12-06-2022 Globulin (S) [Mass/Vol] 2.5 g/dL [facility] Glucose [Mass/volume] in Ser um or PlasmaOrdered By: Lui Velazquez on 12-06-2022 Glucose [Mass/Vol] 97 mg/dL 70-100 [facility] Comment on above: ADA recommended refe rence rangeRandom Glucose Reference Range is dependent on time and content of last meal. Glucose of more than 200 mg/dL in a nonstressed, ambulatory subject supports the diagnosis of Diabetes Mellitus. Hematocrit Auto (Bld) [Volum e fraction]Ordered By: Lui Velazquez on 12-06-2022 Hematocrit (Bld) [Volume fraction] 40.4 % 34.0-46.4 [facility] Hemoglobin [Mass/volume] in BloodOrdered By: Lui Velazquez on 12-06-2022 Hemoglobin (Bld) [Mass/Vol] 13.6 g/dL 11.8-15.4 [facility] Laboratory - CoagulationOrde red By: Lui Velazquez on 12-06-2022 PT Coag (PPP) [Time] 12.3 s 9.0-12.9 [facility] Leukocytes [#/volume] correc lachelle for nucleated erythrocytes in Blood by Automated counOrdered By: Lui Velazquez on 12-06-2022 WBC corrected for nucl RBC Auto (Bld) [#/Vol] 5.5 10*3/uL 3.8-11.6 [facility] Lymphocytes Auto (Bld) [#/Vo l]Ordered By: Lui Velazquez on 12-06-2022 Lymphocytes (Bld) [#/Vol] 1.6 10*3/uL 1.00-4.8 [facility] Lymphocytes/100 WBC Auto (Bl d)Ordered By: Lui Velazquez on 12-06-2022 Lymphocytes/100 WBC (Bld) 29.3 % . [facility] MCH Auto (RBC) [Entitic mass ]Ordered By: Lui Velazquez on 12-06-2022 MCH (RBC) [Entitic mass] 30.8 pg 24.7-34.3 [facility] MCHC Auto (RBC) [Mass/Vol]Or dered By: Lui Velazquez on 12-06-2022 MCHC (RBC) [Mass/Vol] 33.7 g/dL 32.0-35.0 [facility] MCV Auto (RBC) [Entitic vol] Ordered By: Lui Velazquez on 12-06-2022 MCV (RBC) [Entitic vol] 91.4 fL 80-100 [facility] Monocyte distribution width [Entitic volume] in Blood by AutomatedOrdered By: Lui Velazquez on 12-06-2022 Monocyte distribution width Auto (Bld) [Entitic vol] 15.24 % 0.00-20.00 [facility] Monocytes Auto (Bld) [#/Vol] Ordered By: Lui Velazquez on 12-06-2022 Monocytes (Bld) [#/Vol] 0.6 10*3/uL 0.0-0.8 [facility] Monocytes/100 WBC Auto (Bld) Ordered By: Lui Velazquez on 12-06-2022 Monocytes/100 WBC (Bld) 11.5 % . [facility] Neutrophils Auto (Bld) [#/Vo l]Ordered By: Lui Velazquez on 12-06-2022 Neutrophils (Bld) [#/Vol] 3.1 10*3/uL 1.8-7.7 [facility] Neutrophils/100 WBC Auto (Bl d)Ordered By: Lui Velazquez on 12-06-2022 Neutrophils/100 WBC (Bld) 56.2 % . [facility] No Panel InformationOrdered By: Lui Velazquez on 12-06-2022 Estimated GFR () > 60 mL/Min [facility] Comment on above: GFR estimated refere nce range: According to KDOQI guidelines, <60 ml/min/1.73m2 is sufficient to diagnose a patient with chronic kidney disease. Pharmacy Creatinine Clearance (Chem 127.08 [facility] Nucleated erythrocytes [Pres ence] in Blood by Automated countOrdered By: Lui Velazquez on 12-06-2022 Nucleated RBC Auto Ql (Bld) 0.2 /100{WBC} 0-0.5 [facility] Platelet mean volume Auto (B ld) [Entitic vol]Ordered By: Lui Velazquez on 12-06-2022 Platelet mean volume (Bld) [Entitic vol] 8.9 fL 6.3-10.7 [facility] Platelet poor plasma interna tional normalized ratio (INR) by coagulation assay (relatOrdered By: Lui Velazquez on 12-06-2022 INR Coag (PPP) [Relative time] 1.1 {INR} [facility] Comment on above: INR Therapeutic Rang e A) Pre- and Peroperative OAT started two weeks before surgery. NOT HIP SURGERY: 1.5 - 2.5 HIP SURGERY: 2 - 3B) Primary and secondary prevention of venous THROMBOSIS: 2 - 3C) Active venous thrombosis, pulmonary embolismand prevention of recurrent venous thrombosis: 2 - 3D) Prevention of arterial thromboembolismincluding patients with mechanical heart valves: 3 - 4.5 Platelets Auto (Bld) [#/Vol] Ordered By: Lui Velazquez on 12-06-2022 Platelets (Bld) [#/Vol] 163 10*3/uL 150-450 [facility] Potassium [Moles/volume] in Serum or PlasmaOrdered By: Lui Velazquez on 12-06-2022 Potassium [Moles/Vol] 4.3 mmol/L 3.5-5.1 [facility] Protein [Mass/volume] in Ser um or PlasmaOrdered By: Lui Velazquez on 12-06-2022 Protein [Mass/Vol] 6.4 g/dL 6.1-7.9 [facility] RBC Auto (Bld) [#/Vol]Ordere d By: Lui Velazquez on 12-06-2022 RBC (Bld) [#/Vol] 4.42 10*6/uL 3.60-5.00 [facility] Serum or plasma alanine wilson otransferase measurement without P-5'-P (enzymatic activiOrdered By: Lui Velazquez on 12-06-2022 ALT No additional P-5'-P [Catalytic activity/Vol] 14 U/L 10-60 [facility] Serum or plasma albumin/glob ulin mass ratioOrdered By: Lui Velazquez on 12-06-2022 Albumin/Globulin [Mass ratio] 1.6 {ratio} [facility] Serum or plasma anion gap de terminationOrdered By: Lui Velazquez on 12-06-2022 Anion gap [Moles/Vol] 8.4 mmol/L 6.0-15.0 [facility] Sodium [Moles/volume] in Ser um or PlasmaOrdered By: Lui Velazquez on 12-06-2022 Sodium [Moles/Vol] 136 mmol/L 136-146 [facility] Urea nitrogen [Mass/volume] in Serum or PlasmaOrdered By: Lui Velazquez on 12-06-2022 Urea nitrogen [Mass/Vol] 16 mg/dL 9- [facility] WBC Auto (Bld) [#/Vol]Ordere d By: Lui Velazquez on 12-06-2022 WBC (Bld) [#/Vol] 5.5 10*3/uL 3.8-11.6 [facility] Physician Orderon 09-12-2022 Physician Order [id number]:127 Normal [facility] Quantiferon-TB Plus (Client Incubated)on 08-23-2022 Gamma interferon background IA Qn (Bld) 0.01 International_Unit/mL Invalid Interpretation Code [facility] Comment on above: Performed By: #### 1 [id number], [id number], [id number] #### [facility] Laboratory [address] [place] [address] M. tuberculosis stim IFN-g by CD4+ CD8+ T-cells corrected for background Qn (Bld) 0.00 International_Unit/mL Invalid Interpretation Code [facility] Comment on above: Performed By: #### 1 [id number], [id number], [id number] #### [facility] Laboratory [address] [id number] M. tuberculosis stim IFN-g by CD4+ T-cells corrected for background Qn (Bld) 0.00 International_Unit/mL Invalid Interpretation Code [facility] Comment on above: Performed By: #### 1 [id number], [id number], [id number], [id number] #### [facility] [address] [place] [address] M. tuberculosis stim IFN-g Ql (Bld) [Interp] Negative Invalid Interpretation Code Negative [facility] Comment on above: Result Comment: No r esponse to M tuberculosis antigens detected. Infection with M tuberculosis is unlikely, but high risk individuals should be considered for additional testing (ATS/IDSA/CDC Clinical Practice Guidelines, 2017). The reference range is an Antigen minus Nil result of <0.35 IU/mL. The specimen received for QuantiFERON testing was incubated by the ordering institution. Specific procedures outlined in our Directory of Services and in the package insert for the QuantiFERON Gold (In Tube) test must be followed to enable for proper stimulation of cells for the production of interferon gamma. Chemiluminescence immunoassay methodology Performed at: [employer] [id number] PhD Chayo Salvador Performed By: #### 1 [id number], [id number], [id number], [id number] #### [facility] [address] [place] [address] Mitogen stimulated gamma interferon Qn (Bld) >10.00 Invalid Interpretation Code [facility] Comment on above: Performed By: #### 1 [id number], [id number], [id number] #### [facility] [address] [place] [address] Service comment (Unsp spec) [Interp] Comment Invalid Interpretation Code [facility] Comment on above: Result Comment: Ayush tiFERON-TB Gold Plus is a qualitative indirect test for M tuberculosis infection (including disease) and is intended for use in conjunction with risk assessment, radiography, and other medical and diagnostic evaluations. The QuantiFERON-TB Gold Plus result is determined by subtracting the Nil value from either TB antigen (Ag) value. The Mitogen tube serves as a control for the test. Performed By: #### 1 [id number], [id number], [id number], [id number] #### [facility] [address] [place] [address] Hep Bs Abon 08-21-2022 HBV surface Ab Ql (S) Non-Reactive Invalid Interpretation Code [facility] Comment on above: Result Comment: Non Reactive: Inconsistent with immunity, less than 10 mIU/mL Reactive: Consistent with immunity, greater than 9.9 mIU/mL Performed at: [address] [id number] PhD Chayo Salvador Performed By: #### 1 [id number], [id number], [id number], [id number] #### [facility] [address] [place] [address] Measles/Mumps/Rubella Immuni tyon 08-21-2022 MeV IgG IA Qn (S) 30.4 A unit/mL Invalid Interpretation Code Immune >16.4 [facility] Comment on above: Result Comment: Nega tive <13.5 Equivocal 13.5 - 16.4 Positive >16.4 Presence of antibodies to Rubeola is presumptive evidence of immunity except when acute infection is suspected. Performed By: #### 1 [id number], [id number], [id number], [id number] #### [facility] [address] [place] [address] MuV IgG IA Qn (S) <9.0 Low Immune >10.9 [facility] Comment on above: Result Comment: Nega tive <9.0 Equivocal 9.0 - 10.9 Positive >10.9 A positive result generally indicates past exposure to Mumps virus or previous vaccination. Performed at: [facility] [address] [place], [place] [id number] PhD Chayo Salvador Performed By: #### 1 [id number], [id number], [id number], [id number] #### [facility] [address] [place] [address] Rubella virus IgG Qn (S) 4.79 [IU]/mL Invalid Interpretation Code Immune >0.99 [facility] Comment on above: Result Comment: Non- immune <0.90 Equivocal 0.90 - 0.99 Immune >0.99 Performed By: #### 1 [id number], [id number], [id number], [id number] #### [facility] [address] [place] [address] Varic IgGon 08-21-2022 VZV IgG IA Qn (S) 1233 Invalid Interpretation Code Immune >165 [facility] Comment on above: Result Comment: Nega tive <135 Equivocal 135 - 165 Positive >165 A positive result generally indicates exposure to the pathogen or administration of specific immunoglobulins, but it is not indication of active infection or stage of disease. Performed at: [facility] [id number] PhD Chayo Salvador Performed By: #### 1 [id number], [id number], [id number], [id number] #### [facility] [address] [place] [address] Physician Orderon 08-20-2022 Physician Order [id number]:127 Normal [facility] Lab Miscellaneous-LCon 06-20 Lab Miscellaneous COMMENT Invalid Interpretation Code [facility] Comment on above: Result Comment: Test Ordered: [id number] IGP,rfxAptima HPV all,16/18,45 IGP,rfxAptima HPV all,16/18,45 Note WB TESTS RESULT FLAG UNITS REF RANGE LAB Clinician Provided Cytology Information Source.............Cervix No. of containers..01 ThinPrep Vial DIAGNOSIS: 01 NEGATIVE FOR INTRAEPITHELIAL LESION OR MALIGNANCY. Specimen adequacy: 01 Satisfactory for evaluation. No endocervical component is identified. Performed by: Ruben Agudelo, [employer] ([facility]) . 01 Note: Note 01 The Pap smear is a screening test designed to aid in the detection of premalignant and malignant conditions of the uterine cervix. It is not a diagnostic procedure and should not be used as the sole means of detecting cervical cancer. Both false-positive and false-negative reports do occur. Test Methodology: Note 01 This liquid based ThinPrep(R) pap test was screened with the use of an image guided system. . 01 The HPV DNA reflex criteria were not met with this specimen result therefore, no HPV testing was performed. FLAG LEGEND: L-Low Normal,H-High Normal,LL-Alert Low,HH-Alert High <-Panic Low,>-Panic High,A-Abnormal,AA-Critical Abnormal Performed at: [facility] [address] [phone] Lorenza Al MD, Performed at: [facility] [address] [id number] MD Servando Britt Performed By: #### 1 [id number] #### [facility] [address] [place] [address] Lab Miscellaneous-LCon 06-14 Source CERVICAL Invalid Interpretation Code [facility] Comment on above: Performed By: #### 1 [id number] #### [facility] [address] [place] [address] Test Code 404238 Invalid Interpretation Code [facility] Comment on above: Performed By: #### 1 [id number] #### [facility] [address] [place] [address] Test Name IG PAP HPV JAILENE Invalid Interpretation Code [facility] Comment on above: Performed By: #### 1 [id number] #### [facility] [address] [place] [address] [place]enton 02-15-2022 Consent [id number]:127 [facility] In office Testingon 02-16-20 In office Testing [id number]#[id number]:127 Normal [facility] Registrationon 02-15-2022 Registration [id number]#[id number]:127 [facility] Vital Signs Date Time Vital Sign Value Performing Clinician Facility 11-13-2023 11:05-0500 Body height 162.6 cm John Visci DO Work Phone: [facility] 11-13-2023 11:05-0500 Body mass index (BMI) [Ratio] 30.9 kg/m2 John Visci DO Work Phone: [facility] 11-13-2023 11:05-0500 Body weight 81.65 kg John Visci DO Work Phone: [facility] 11-13-2023 11:05-0500 Diastolic blood pressure 74 mm[Hg] John Visci DO Work Phone: [facility] 11-13-2023 11:05-0500 Systolic blood pressure 118 mm[Hg] John Visci DO Work Phone: [facility] 12-06-2022 05:29-0500 Diastolic blood pressure 53 mm[Hg] MD Vic Serrano Work Phone: [facility] 12-06-2022 05:29-0500 Heart rate 86 /min MD Vic Serrano Work Phone: [facility] 12-06-2022 05:29-0500 Respiratory rate 16 /min MD Vic Serrano Work Phone: [facility] 12-06-2022 05:29-0500 SaO2% (BldA) [Mass fraction] 97 % MD Vic Serrano Work Phone: [facility] 12-06-2022 05:29-0500 Systolic blood pressure 92 mm[Hg] MD Vic Serrano Work Phone: [facility] 12-06-2022 04:34-0500 Body height 162.56 cm MD Vic Serrano Work Phone: [facility] 12-06-2022 04:34-0500 Body temperature 98.7 [degF] MD Vic Serrano Work Phone: [facility] 12-06-2022 04:34-0500 Body weight 72.05 kg MD Vic Serrano Work Phone: [facility] Encounters Encounter Date Encounter Type Care Provider Facility Start: 07-06-2024 End: 07-06-2024 Emergency department patient visit VIC Bansal Panchito [facility] Start: 11-13-2023 End: 11-13-2023 ambulatory JOHN A VISCI Not Available Start: 11-13-2023 End: 11-13-2023 Patient encounter procedure John A Visci DO Work Phone: [facility] Comment on above: Encounter for Nexpla non removal Start: 10-21-2023 End: 10-21-2023 ambulatory JOHN A VISCI Not Available Start: 12-06-2022 End: 12-06-2022 Emergency department patient visit Lui Velazquez Jr Facility:[facility] Start: 12-06-2022 End: 12-06-2022 Emergency department patient visit MD Vic Serrano Work Phone: [facility] Work Phone: Start: 08-20-2022 End: 08-21-2022 ambulatory DO Rajesh Hunt Facility:[facility] Start: 06-13-2022 End: 06-14-2022 ambulatory Darwin Millan Facility:[facility] Start: 06-13-2022 End: 06-13-2022 Lab Drop off Darwin Millan 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 L OF CONTRACEPTIVE CAPSULE John Lai Dane DO Work Phone: Start: 11-20-2019 Excision of cyst of ovary Darwin Millan extraction of wisdom teeth Andreia Millan Plan of Treatment Date Care Activity Detail Author Start: 12-06-2022 CT of head without contrast CT head/brain wo con [facility] Start: 12-06-2022 CT Unspecified body region WO contrast [facility] Patient Education Migraines in Adults [facility] Work Phone: Patient referral [facility] Work Phone: Payers Date Payer Category Payer Private Health Insurance 2022 Unknown [id number] 2021 Managed Care HMO (unspecified) [employer]ET[employer] AETNA [id number] 2021-Present [address] [place] [address] HMO [id number] 2021 Private Health Insurance [id number] 1999 Unknown [id number]. [id number] 1999 Unknown [id number] [id number]. 2.593 1999 Unknown [id number] [id number]. 2.727 1999 Unknown [id number] [id number]. 2.727 1999 Unknown [id number] [id number]. 2.727 1999 Unknown [id number] [id number]. 2.1259 1999 Unknown [id number] [id number]. 2.1259 1999 Unknown [id number] [id number]. 2.1286 1959 Self-pay Private Health Insurance [facility] [id number] Unknown [id number] Unknown [id number]. [id number] Social History Date Type Detail Facility Tobacco smoking status No Smokin g Status Entered [facility] Start: 10-21-2023 End: 11-12-2023 Sex Assigned At Female [facility] Start: 12-06-2022 Tobacco smoking stat [facility] Ex-smoker (finding) [facility] Start: 2000 Sex Assigned At Female F [facility] Start: 10-16-2023 Tobacco smoking stat [facility] Never smoked tobacco [facility] Start: 10-16-2023 Tobacco use and exposure Smokeless tobacco non-user [facility] Start: 11-13-2023 Alcohol intake Current drinke r of alcohol (finding) [facility] Start: 10-21-2023 End: 11-12-2023 History of Social function [facility] How often to you hav e a drink containing alcohol? Monthly or less [facility] How many standard drinks containing alcohol do you have on a typical day? 1 or 2 [facility] How often do you hav e 6 or more drinks on 1 occasion? Never [facility] Start: 10-16-2023 Alcohol Comment Caffeine intak e: 1-2 cups per day energy drink [facility] Start: 2000 Sex Assigned At Not on file [facility] History of Present illness Narrative 11-13-2023 John Haley DO - 11/13/2023 10:30 AM EST Note Date & Type Note Facility 11-13-2023 History of Presen t illness Narrative Associated Order(s): Insertion/Removal of Contraceptive Capsule Post-Procedure Diagnose(s): Encounter for Nexplanon removal Images from the original note were not included. Héctor Bolton is a 23 y.o. female Chief Complaint Patient presents with Contraception Pt presents for Nexplanon removal. Left arm. 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 OB History Para Term AB Living 0 0 0 0 0 0 SAB IAB Ectopic Multiple Live Births 0 0 0 0 0 Obstetric Comments Pap pt thinks her pap was in December 2021, with Dr. Millan. Review of Systems All negative unless documented in treatment Objective Visit Vitals BP 118/74 Ht 5' 4 Wt 180 lb LMP 10/21/2023 Comment: Irregular, will skip months, and then bleed for a month sometimes. BMI 30.90 kg/m OB Status Having periods Smoking Status Never BSA 1.92 m Allergies Allergen Reactions Azithromycin Other Reaction(s): Hives OBGyn Exam Insertion/Removal of Contraceptive Capsule Date/Time: 11/13/2023 11:47 AM Performed by: John Haley DO Authorized by: John Haley DO Consent: Consent obtained: Verbal Consent given by: Patient Procedural risks discussed: Bleeding and infection Patient questions answered: yes Patient agrees, verbalizes understanding, and wants to proceed: yes Indication: Indication: Presence of non-biodegradable drug delivery implant Pre-procedure: Pre-procedure timeout performed: yes Prepped with: povidone-iodine Local anesthetic: Lidocaine with epinephrine The site was cleaned and prepped in a sterile fashion: yes Procedure: Procedure: Removal Small stab incision was made in arm: yes Left/right: Left Site was closed with steri-strips and pressure bandage applied: yes Comments: Implant removed intact ICD-10-CM 1. Encounter for Nexplanon removal Z30.46 She tolerated removal of her Nexplanon without difficulty. She is to remove her outer dressing in 24 hours. She is to change her Band-Aid daily and we will remove the Steri-Strips in 5 days. She is to report any signs of infection like redness, red streaking, drainage, fevers etc. She has a prescription for oral control pills. If she needs refills she will call. documented in this encounter [facility] Evaluation + Plan note Note Date & Type Note Facility Evaluation + Plan note No data available for this section [facility] Evaluation note Note Date & Type Note Facility Evaluation note No assessment information availa [facility] Work Phone: Evaluation note Note Date & Type Note Facility Evaluation note Diagnosis Encounter for Nexplanon removal documented in this encounter [facility] Hospital Discharge instructions Note Date & Type Note Facility Hospital Discharge instructions No data available for this section [facility] Progress note Note Date & Type Note Facility Progress note No data available for this section [facility] Summary Purpose Family History No Family History Records FoundNo Family History Records FoundNo Family History Records FoundNo Family History Records FoundNo Family History Records Found Advance Directives No Advanced Directives Records Found Advance Directive Response Recorded Date/ Time Advance Directives No June 1:27pm Chief Complaint and Reason for Visit Chief Complaint migraine/ stroke lik e symptoms Additional Source Comments INFORMATION SOURCE (unrecogn ized section and content) DATE CREATED AUTHOR 10/29/2020 [facility] DATE CREATED AUTHOR AUTHOR'S ORGANIZ ATION 01/12/2023 [facility] DATE CREATED AUTHOR AUTHOR'S ORGANIZ ATION 01/21/2023 [facility] DATE CREATED AUTHOR AUTHOR'S ORGANIZ ATION 11/14/2023 [facility] EPIC DATE CREATED AUTHOR AUTHOR'S ORGANIZ ATION 07/06/2024 [facility] Care Team (unrecognized sect ion and content) Team Status: Inactive Member Role Status Dates Vic Serrano MD Primary Care Provider Active Lui Velazquez Jr, MD Emergency Provider Active Team Status: Active Member Role Status Dates Vic Serrano MD Primary Care Provider Active Computer Forensic Specialist Relationship Specialty Start Date End Date Vic Serrano MD [address] [place] [id number] PCP - General Family Medicine 10/18/23 Goals (unrecognized section and content) Goals may be documented in a n alternate section Reason for Visit (unrecogniz ed section and content) Reason Comments Contraception Pt presents for Nexp lanon removal. Left arm. FOR RECORDS PERTAINING TO PATIENTS WHO ARE OR HAVE BEEN ENROLLED IN A CHEMICAL DEPENDENCY/SUBSTANCEABUSE PROGRAM, SOME INFORMATION MAY BE OMITTED. This clinical summary was aggregated from multiple sources. Caution should be exercised in using it in the provision of clinical care. This summary normalizes information from multiple sources, and as a consequence, information in this document may materially change the coding, format and clinical context of patient data. In addition, data may be omitted in some cases. CLINICAL DECISIONS SHOULD BE BASED ON THE PRIMARY CLINICAL RECORDS. [facility]. provides no warranty or guarantee of the accuracy or completeness of information in this document.
[2024-07-15 10:33] LABS: Basophils Absolute Auto 0.1 10^3/uL (0.0-0.1); Basophils Percent Auto 1.4 % (0.2-2.0); Eosinophils Percent Auto 0.9 % (0.9-7.0); Hematocrit 41.5 % (36.0-48.0); Hemoglobin 13.9 g/dL (12.0-16.0); Lymphocytes Absolute Auto 1.1 10^3/uL (1.2-3.8); Lymphocytes Percent Auto 25.8 % (20.5-60.0); Mean Corpuscular HGB Conc 33.5 g/dL (29.9-35.2); Mean Corpuscular Hemoglobin 29.6 pg (26.7-34.0); Mean Corpuscular Volume 88.3 fL (81.0-99.0); Mean Platelet Volume 10.5 fL (9.5-13.5); Monocytes Absolute Auto 0.5 10^3/uL (0.3-0.8); Monocytes Percent Auto 10.9 % (1.7-12.0); Neutrophils Absolute Auto 2.7 10^3/uL (1.4-6.5); Platelet Count 214 10^3/uL (150-450); Red Cell Distribution Width 13.8 % (11.0-15.0); White Blood Count 4.4 10^3/uL (4.0-11.0)
[2024-07-15 10:50] LABS: Alanine Aminotransferase 17 U/L (14-59); Albumin Globulin Ratio 1.2; Albumin Level 3.9 g/dL (3.4-5.0); Alkaline Phosphatase 45 U/L (46-116); Amylase 91 U/L (25-115); Anion Gap 11.5; Aspartate Amino Transferase 15 U/L (15-37); BUN Creatinine Ratio 9.9; Bilirubin Total 0.5 mg/dL (0.2-1.0); Calcium 9.2 mg/dL (8.5-10.1); Carbon Dioxide 26.6 mmol/L (21.0-32.0); Chloride 101 mmol/L (98-107); Estimated GFR (African America >60 (>=60 mL/min/1.73m^2); Estimated GFR (Non-African Ame >60 (>=60 mL/min/1.73m^2); Globulin 3.2 g/dL; Glucose 100 mg/dL (74-106); Potassium 4.1 mmol/L (3.5-5.1); Sodium 135 mmol/L (136-145); Total Protein 7.1 g/dL (6.4-8.2)
[2024-07-15 10:56] LABS: HCG Quantitative <1 mIU/mL
== END 2024-07-15 10:13 | disposition home or self-care (01) ==
LOC: LAB 10:13
PROVIDERS: PCP Family Medicine; Visit Provider Family Medicine
DX: K52.9 Noninfective gastroenteritis and colitis, unspecified (principal)
CPT/HCPCS: 36415; 80053; 82150; 83690; 84702; 85025